=== PATIENT | female | born 1995 | race Caucasian/White ===

== ENCOUNTER 2020-05-21 19:28 | Emergency (ER) | payer OTHER, SELFPAY ==
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
[2020-05-21 19:31] VITALS: BP 114/73; PULSE 85; RESP 18; TEMP 36; O2SAT 99; BMI 35.5
[2020-05-21 19:35] VITALS: BP 114/73; PULSE 88; RESP 18; TEMP 35.8; O2SAT 100
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
== END 2020-05-21 20:47 | disposition home or self-care (01) ==
PROVIDERS: Emergency Provider Emergency Medicine
DX: S80.02XA Contusion of left knee, initial encounter (principal); M25.562 Pain in left knee; M79.605 Pain in left leg; V43.52XA Car driver injured in collision with other type car in traffic accident, initial encounter; Y93.9 Activity, unspecified; Y92.410 Unspecified street and highway as the place of occurrence of the external cause; Y99.9 Unspecified external cause status
CPT/HCPCS: 73564; 73590; 99283; 99284

== ENCOUNTER 2020-05-31 18:17 | Emergency (ER) | payer OTHER, SELFPAY ==
[2020-05-31 18:26] VITALS: BP 121/74; PULSE 95; RESP 16; TEMP 36.9; O2SAT 98; BMI 35.5
[2020-05-31 18:50] LABS: Glucose Urine UA NEG (NEG); Leukocyte Esterase Urine TRACE (NEG); Nitrite Urine NEG (NEG); Specific Gravity - Urine >= 1.030 (1.005-1.025); Urine Blood NEG (NEG); Urine Ketones 5 MG/DL (NEG); Urine Protein NEG (NEG-TRACE)
[2020-05-31 19:10] LABS: Appearance Urine CLEAR; Color Urine YELLOW
[2020-05-31 19:12] LABS: Bacteria Urine 1+ /LPF; RBC Urine 0 /HPF (0); Squamous Epithelial Cell Urine 1+ /LPF; WBC Urine 0-2 /HPF (0-4)
--- NOTE | 2020-05-31 20:13 | ED.FEMALEGU ---
HPI - Female Genitourinary General Chief complaint: Urogenital-Female Stated complaint: UTI Time Seen by Provider: 05/31/20 20:35 Source: patient Mode of arrival: ambulatory Limitations: no limitations History of Present Illness HPI Narrative: 24-year-old female presents with dysuria, vaginal itching and discharge. MD elicited complaint: dysuria, UTI , vaginal discharge, pelvic pain and genital itching Onset (ago): day(s) (3) Location of symptoms: external genitalia and perineum Severity: moderate Female Urogenital Radiation: Suprapubic Severity scale (1-10): 7 Quality of pain: burning and aching Vaginal discharge: white, yellow, thick/cheesy and vaginal odor Vaginal bleeding: none Urinary symptoms: Dysuria Relieving factors: none Sexual activity: Yes Patient : No Possible : at home test negative Related Data : 1 Para: 1 Total number of abortions (spontaneous and elective): 0 Previous Rx's Medication Instructions Recorded ibuprofen 600 mg PO Q8H PRN #20 tab 05/21/20 fluconazole [Diflucan] 150 mg PO DAILY #1 tab 05/31/20 nitrofurantoin monohyd/m-cryst 100 mg PO Q12H 7 Days #14 cap 05/31/20 [Macrobid] phenazopyridine [Pyridium] 200 mg PO TID PRN 3 Days #10 tab 05/31/20 Allergies Allergy/AdvReac Type Severity Reaction Status Date / Time No Known Allergies Allergy Verified 05/21/20 19:30 Review of Systems Review of Systems: Constitutional: No Fever, No Chills ENT/Mouth: No sore throat, No Rhinorrhea Eyes: No Eye Pain, No Redness Cardiovascular: No Chest Pain, No SOB Respiratory: No Cough, No Sputum, No Wheezing Gastrointestinal: No Nausea, No Vomiting, No Diarrhea, positive abdominal pain, Genitourinary: no irregular bleeding, positive Dysuria, No Urinary Frequency, positive pelvic pain, positive vaginal discharge positive vaginal itching Musculoskeletal: No Myalgias Skin: No rash Neuro: No Weakness, No Headache Psych: No Anxiety/Panic, No Depression Heme/Lymph: No bruising, No Lymphadenopathy Endocrine: No Polyuria, No Polydipsia Yes all other systems are reviewed and are negative PMFSH Past Medical History Medical History No known health problems : 1 Para: 1 Total number of abortions (spontaneous and elective): 0 Social History Social History Alcohol intake: never Advance Directives: No Advance Directives Information Provided: Yes Physical Exam Vital Signs: Vital Signs: Last Vital Signs Temp 98.1 F 05/31/20 21:22 Pulse 98 05/31/20 21:22 Resp 18 05/31/20 21:22 BP 105/62 05/31/20 21:22 Pulse Ox 99 05/31/20 21:22 Body Mass Index 35.5 Appearance: Alert. Oriented X3. No acute distress. Eyes: Pupils equal, round and reactive to light. ENT: Pharynx normal. Neck: Normal inspection. Neck supple. CVS: Normal heart rate and rhythm. Pulses normal. Respiratory: No respiratory distress. Breath sounds normal. Abdomen: Soft and nontender. Skin: Skin warm and dry. Normal skin color. Normal skin turgor. Extremities: No lower extremity edema. Neuro: No motor deficit. No sensory deficit. Course Course Course Narrative: 24-year-old female presents with vaginal discharge and itching with dysuria. Plan of care to test for STI, and to treat. We will perform pelvic exam. Detailed description regarding testing and exam discussed with the patient. She agrees. 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 Cervical os slit consistent with prior vaginal delivery, os is pink, normal, copious amounts of clumpy white and yellow discharge, no cervical motion tenderness, no adnexal tenderness. Findings consistent with yeast infection. Urinalysis positive for yeast infection. CBC and Chem 7 are within normal limits. Patient verbalized understanding of and agrees with plan of care discharge home. Reevaluation(s) Reevaluation #1: Nurse reported that patient did not want have the injections of penicillin and ceftriaxone to treat for sexually transmitted infections. She stated that she would rather be tested positive and come back and return for treatment. Time: 22:03 MDM - Female Genitourinary Differential Diagnosis Differential diagnosis: Likely urinary tract infection, bacterial vaginosis, trichomoniasis, cervicitis and vaginitis Medical Records Attestation: I reviewed the patient's medical records. Lab Data Attestation: I reviewed the patient's lab results. Result diagrams: 05/31/20 21:27 05/31/20 21:27 Labs: Lab Results 05/31/20 05/31/20 05/31/20 Range/Units 18:40 21:27 21:27 WBC 10.4 (4.8-10.8) X10*3/uL RBC 4.72 (4.20-5.50) X10*6/uL Hgb 13.2 (12.0-16.0) g/dl Hct 39.8 (37-47) % MCV 84.3 (80-98) fL MCH 28.0 (27.0-33.0) pg MCHC 33.2 (31.0-35.0) g/dl RDW 13.3 (11.0-16.0) % Plt Count 369 (160-400) X10*3/uL MPV 9.4 (9.4-12.3) fL Absolute Nucleated RBC 0.000 (0.0-0.012) X10*3/uL Nucleated RBC % (auto) 0.0 (0.0-0.2) /100WBC Sodium 139 (135-145) mmol/L Potassium 3.9 (3.3-5.1) mmol/l Chloride 106 (96-108) mmol/L Carbon Dioxide 24 (22-29) mmol/L Anion Gap 13 (12-20) BUN 14 (9-16) mg/dL Creatinine 0.78 (0.5-1.4) mg/dL Estim Creat Clear Calc 98.9 Estimated GFR > 60 Random Glucose 104 (60-115) mg/dL Calcium 8.9 (8.4-10.2) mg/dL Urine Color YELLOW Urine Appearance CLEAR Urine pH 6.0 (5.0-8.0) Ur Specific [place] >= 1.030 H (1.005-1.025) Urine Protein NEG (NEG-TRACE) MG/DL Urine Glucose (UA) NEG (NEG) MG/DL Urine Ketones 5 (NEG) MG/DL Urine Blood NEG (NEG) Urine Nitrite NEG (NEG) Ur Leukocyte Esterase TRACE H (NEG) Urine RBC 0 (0) /HPF Urine WBC 0-2 (0-4) /HPF Ur Squamous Epith Cells 1+ /LPF Urine Bacteria 1+ /LPF Discharge Plan Discharge Clinical Impression: Urinary tract infection, Candidiasis of genitalia in female Patient Disposition: Home, Self-Care Instructions: Sexually Transmitted Diseases (ED), Urinary Tract Infection in Women (ED), Yeast Infection (ED) Additional Instructions: you were evaluated for urinary symptoms and vaginal discharge. We treated you for syphilis, gonorrhea, and chlamydia. Please do not participate in any sexual activity until 7 days after you are symptom free. You do have a urinary tract infection. Please take Macrobid as directed. Complete the entire course of this antibiotic. We also prescribed Pyridium to help with bladder spasms. We ordered a dose of Diflucan, take this medication once the medications for your urinary tract infection are complete. Thank you for choosing this emergency department for evaluation. Please follow-up with primary care physician as needed. Return to the emergency department for any new, concerning, or worsening symptoms. Prescriptions: New nitrofurantoin monohyd/m-cryst [Macrobid] 100 mg capsule 100 mg PO Q12H 7 Days Qty: 14 RF: 0 phenazopyridine [Pyridium] 200 mg tablet 200 mg PO TID PRN (Reason: pain) 3 Days Qty: 10 RF: 0 fluconazole [Diflucan] 150 mg tablet 150 mg PO DAILY Qty: 1 RF: 0 No Action ibuprofen 600 mg tablet 600 mg PO Q8H PRN (Reason: pain) Qty: 20 RF: 0 Interventions: ED Discharge Assessment Last Done: 05/31/20 22:01 Discharge Date/Time: 05/31/20 22:04
[2020-05-31 21:22] VITALS: BP 105/62; PULSE 98; RESP 18; TEMP 36.7; O2SAT 99
[2020-05-31 21:34] LABS: Hematocrit 39.8 % (37-47); Hemoglobin 13.2 g/dl (12.0-16.0); Mean Corpuscular HGB Conc 33.2 g/dl (31.0-35.0); Mean Corpuscular Volume 84.3 fL (80-98); Mean Platelet Volume 9.4 fL (9.4-12.3); Platelet Count 369 X10*3/uL (160-400); Red Blood Count 4.72 X10*6/uL (4.20-5.50); Red Cell Distribution Width 13.3 % (11.0-16.0); White Blood Count 10.4 X10*3/uL (4.8-10.8)
[2020-05-31] MEDS: Fluconazole 150 MG TABLET PO (21:56)
[2020-05-31 22:02] LABS: Anion Gap 13 (12-20); Blood Urea Nitrogen 14 mg/dL (9-16); Calcium 8.9 mg/dL (8.4-10.2); Carbon Dioxide 24 mmol/L (22-29); Chloride 106 mmol/L (96-108); Creatinine Clr Calc Pharmacy 98.9; Estimated Glomerular Filt Rate > 60; Glucose Random 104 mg/dL (60-115); Potassium 3.9 mmol/l (3.3-5.1); Sodium 139 mmol/L (135-145)
[2020-06-01 09:20] LABS: BV Int Neg Control Negative (Negative); BV Int Pos Control Positive (Positive)
[2020-06-02 07:48] LABS: Syphilis Screen Nonreactive (Nonreactive)
[2020-06-05 04:30] LABS: CT PCR NOT DETECTED (Not Detect.); NG PCR NOT DETECTED (Not Detect.)
== END 2020-05-31 22:04 | disposition home or self-care (01) ==
PROVIDERS: Nurse Practitioner Family; Emergency Provider Internal Medicine
DX: N39.0 Urinary tract infection, site not specified (principal); B37.3 Candidiasis of vulva and vagina; R10.2 Pelvic and perineal pain
CPT/HCPCS: 36415; 80048; 81001; 81003; 85027; 86780; 87086; 87480; 87491; 87510; 87591; 87660; 96372; 99283; 99284

== ENCOUNTER 2022-08-31 18:29 | Inpatient (IN) | payer OTHER, SELFPAY ==
--- NOTE | ~2022-08-31 | CT_ITS ---
EXAMINATION: CT ABDOMEN AND PELVIS WITH CONTRAST CLINICAL INFORMATION: Right lower quadrant pain. COMPARISON: None. TECHNIQUE: Multidetector volumetric images were obtained from the superior aspect of the liver through the pubic symphysis following administration 85 mL of Omnipaque 350 intravenous contrast. Sagittal and coronal reformatted images were obtained on the technologist's workstation. Oral contrast: No This CT examination was performed using dose optimization techniques as appropriate, variously including the following: *Automated exposure control *Adjustment of mA and/or kV according to patient size (this includes techniques or standardized protocols for targeted exams where dose is matched to indication/reason for exam; i.e. extremities or head) *Use of iterative reconstruction technique DLP: 515 mGy-cm FINDINGS: LUNG BASES: The visualized lung bases are unremarkable. LIVER, GALLBLADDER, AND BILIARY TREE: The liver is enlarged measuring 18 cm craniocaudally but otherwise normal in shape and attenuation. No focal liver lesion. The gallbladder is unremarkable. No biliary ductal dilatation. PANCREAS: Unremarkable. SPLEEN: Unremarkable. ADRENAL GLANDS: Unremarkable. KIDNEYS AND URETERS: The kidneys are normal in size, shape, and attenuation. No hydronephrosis, hydroureter, or calculi seen. No perinephric stranding. BLADDER: Unremarkable. GASTROINTESTINAL TRACT: The distal ileum and terminal ileum are wall thickened and hyperemic with surrounding mesenteric fat stranding and lymphadenopathy. There is significant submucosal edema and wall thickening at the cecal base versus less likely an extraluminal low density collection, for instance measuring 5.4 x 1.8 cm on coronal image 18 series 5. The appendix appears to be within normal limits (coronal images 26 and 28, series 5). The distal colon is underdistended with equivocal wall thickening. No evidence of bowel obstruction. No free air. ABDOMINAL WALL: No significant hernia is appreciated. LYMPH NODES: Mesenteric and retroperitoneal lymphadenopathy. VASCULAR: Unremarkable. PELVIC VISCERA: The ovaries are enlarged and heterogeneous, difficult to entirely delineate due to adjacent loops of small bowel. There is a nonspecific hyperdense observation in the left ovary measuring 2.9 cm up to 68 Hounsfield units on sagittal image 39, series 6. Serpiginous structures surrounding the ovaries could represent dilated fallopian tubes or loops of the small bowel. There is small volume of free fluid in the cul-de-sac and adnexal regions. OSSEOUS STRUCTURES: Unremarkable. CT/CT abdomen pelvis w IV con IMPRESSION: Fluid filled hyperemic and wall thickened terminal ileum and distal ileum with associated mesenteric stranding and lymphadenopathy, most suggestive of acute ileitis. There is equivocal wall thickening of the descending colon versus underdistention which could indicate associated colitis. The skip distribution and involvement of the terminal ileum raises the possibility of an acute flare in the setting of Crohn's disease, GI referral is recommended. A rim-enhancing low density structure around the cecal base could represent significant contained submucosal edema/wall thickening versus a pericecal collection. Administration of oral contrast would be helpful in better delineation of the bowel and to ensure the absence of extraluminal leak. The ovaries are heterogeneous and encircle by loops of small bowel limiting accurate delineation. Uncertain if there is a hemorrhagic cyst in the left ovary and dilated fallopian tubes versus most likely just dilated small bowel loops. Recommend clinical correlation for pelvic inflammatory disease and if indicated further evaluation with pelvic ultrasound. Retroperitoneal and mesenteric lymphadenopathy, likely reactive. Nonspecific hepatomegaly. This result was discussed with Maurice Fair at 08/31/2022 10:47 PM and it was ascertained that the content of the report was understood at the time of direct communication.
--- NOTE | ~2022-08-31 | US_ITS ---
EXAMINATION: US PELVIS CLINICAL INFORMATION: Right-sided pelvic pain for 3 days. COMPARISON: CT abdomen/pelvis dated 08/31/2022 TECHNIQUE: Ultrasound of the pelvis is performed using both transabdominal and transvaginal transducers along with Doppler. Transvaginal imaging is performed due to inadequate visualization transabdominally. FINDINGS: Uterus: The uterus is anteverted and measures 6.8 x 3.8 x 4.1 cm. The double wall endometrial thickness is 0.6 mm. There is a small amount of debris-containing endometrial fluid. The uterus is smooth in contour and has normal myometrial echogenicity. No visible fibroid. Adnexa: Both ovaries are visualized. There is normal color flow to the adnexa. There is no ovarian torsion. There is no pelvic ascites or fluid collection. Right ovary measures 5.5 x 2.3 x 3.6 cm. There is a 2.6 cm benign cyst containing a single septation. There is a heterogeneously hypoechoic, likely complicated cyst measuring 2.7 x 2.2 x 1.9 cm. Left ovary measures 5.4 x 3.2 x 3.0 cm. There is a 3.5 x 2.8 x 3.0 cm heterogeneously hypoechoic structure in the left ovary. There is a solid component containing blood flow, which may represent ovarian parenchyma, however is indeterminate. US/US pelvic ovarian doppler IMPRESSION: * No evidence of ovarian torsion. * No etiology for the patient's right lower quadrant pain is identified. * Small, complicated fluid, likely blood present within the endometrial canal. * Nonspecific indeterminant solid and cystic structure in the left ovary. Recommend MRI pelvis without and with contrast for further evaluation. * Probable hemorrhagic cyst in the right ovary measuring 2.7 cm. Attention on follow-up.
--- NOTE | ~2022-08-31 | US_ITS ---
EXAMINATION: US PELVIS CLINICAL INFORMATION: Right-sided pelvic pain for 3 days. COMPARISON: CT abdomen/pelvis dated 08/31/2022 TECHNIQUE: Ultrasound of the pelvis is performed using both transabdominal and transvaginal transducers along with Doppler. Transvaginal imaging is performed due to inadequate visualization transabdominally. FINDINGS: Uterus: The uterus is anteverted and measures 6.8 x 3.8 x 4.1 cm. The double wall endometrial thickness is 0.6 mm. There is a small amount of debris-containing endometrial fluid. The uterus is smooth in contour and has normal myometrial echogenicity. No visible fibroid. Adnexa: Both ovaries are visualized. There is normal color flow to the adnexa. There is no ovarian torsion. There is no pelvic ascites or fluid collection. Right ovary measures 5.5 x 2.3 x 3.6 cm. There is a 2.6 cm benign cyst containing a single septation. There is a heterogeneously hypoechoic, likely complicated cyst measuring 2.7 x 2.2 x 1.9 cm. Left ovary measures 5.4 x 3.2 x 3.0 cm. There is a 3.5 x 2.8 x 3.0 cm heterogeneously hypoechoic structure in the left ovary. There is a solid component containing blood flow, which may represent ovarian parenchyma, however is indeterminate. US/US pelvic and transvaginal IMPRESSION: * No evidence of ovarian torsion. * No etiology for the patient's right lower quadrant pain is identified. * Small, complicated fluid, likely blood present within the endometrial canal. * Nonspecific indeterminant solid and cystic structure in the left ovary. Recommend MRI pelvis without and with contrast for further evaluation. * Probable hemorrhagic cyst in the right ovary measuring 2.7 cm. Attention on follow-up.
[2022-08-31 18:41] VITALS: BP 124/79; PULSE 104; RESP 16; TEMP 36.7; O2SAT 97; BMI 33.2
--- NOTE | 2022-08-31 18:42 | ED_ITS ---
HPI - Abdominal Pain General Chief Complaint: Abdominal Pain <Leonora Rueda CNP - Last Filed: 08/31/22 18:49> Stated Complaint: right sided lower abd pain <Leonora Rueda CNP - Last Filed: 08/31/22 18:49> Time Seen by Provider: 08/31/22 20:20 <Leonora Rueda CNP - Last Filed: 08/31/22 18:49> Source: patient <DEBI Garg - Last Filed: 09/01/22 01:30> Mode of arrival: ambulatory <DEBI Garg - Last Filed: 09/01/22 01:30> Limitations: no limitations <DEBI Garg Last Filed: 09/01/22 01:30> History of Present Illness HPI narrative: This is a 26-year-old female no significant medical history presenting to the emergency department with complaints severe right lower quadrant pain x3 days. Patient tells me initially pain started in her epigastric region has migrated to the right lower quadrant. Patient tells me initially pain was intermittent in nature however now constant. Patient reports sharp pain. Rates the pain as 6 to 7/10. Also patient complaining of diarrhea has had a few loose bowel movements starting today. Patient reports anorexia. Denies fevers, chills, nausea, vomiting, dysuria, urinary frequency, hematuria, chest pain, shortness of breath, headache, vision changes in dizziness. Patient's last menstrual period was on 08/20/2022, low suspicion for per patient. Denies any pelvic or vaginal complaints. Denies having previous pain like this in the past. <DEBI Garg - Last Filed: 09/01/22 01:30> Related Data Home Medications: Previous Rx's Medication Instructions Recorded ibuprofen 600 mg tablet 600 mg PO Q8H PRN pain #20 tabs 05/21/20 fluconazole 150 mg tablet 150 mg PO DAILY #1 tab 05/31/20 (Diflucan) nitrofurantoin 100 mg PO Q12H 7 days #14 caps 05/31/20 monohydrate/macrocrystals 100 mg capsule (Macrobid) phenazopyridine 200 mg tablet 200 mg PO TID PRN pain 3 days #10 05/31/20 (Pyridium) tabs <Leonora Rueda CNP - Last Filed: 08/31/22 18:49> Allergies/Adverse Reactions: Allergies Allergy/AdvReac Type Severity Reaction Status Date / Time No Known Allergies Allergy Verified 05/21/20 19:30 <Leonora Rueda CNP - Last Filed: 08/31/22 18:49> Review of Systems Review of Systems Constitutional : No Weight loss, No Fever, No Chills, No Fatigue, No Malaise ENT/Mouth : No sore throat, No Rhinorrhea Eyes: No Eye Pain, No Swelling, No Redness Cardiovascular : No Chest Pain, No SOB, No Dyspnea on Exertion, No Orthopnea, No Edema, No Palpitations Respiratory : No Cough, No Sputum, No Wheezing Gastrointestinal : No Nausea, No Vomiting, + Diarrhea, No Constipation, + abdominal Pain, No Hematochezia, No Melena Genitourinary : No Dysuria, No Urinary Frequency, No Hematuria, Musculoskeletal : No joint pain, No Myalgias, No Joint Swelling Skin : No Skin Lesions, No rash Neuro : No Weakness, No Numbness, No Dizziness, No Headache Psych : No Anxiety/Panic, No Depression All other systems reviewed and are negative <DEBI Garg - Last Filed: 09/01/22 01:30> Yes all other systems are reviewed and are negative <DEBI Garg - Last Filed: 09/01/22 01:30> PMFSH Past Medical History Attestation statement: The following information was validated with the patient. <DEBI Garg - Last Filed: 09/01/22 01:30> Source: old records reviewed and nursing notes reviewed <DEBI Garg - Last Filed: 09/01/22 01:30> Medical History: Medical History No known health problems <Leonora Rueda CNP - Last Filed: 08/31/22 18:49> Social History Social History: Social History Alcohol intake: never Patient Tobacco Use Status: Never used Tobacco Smoked in Last 30 Days: No Use of substances other than those prescribed or required for medical reasons: No Advance Directives: No Advance Directives Information Provided: No Nutrition Risks: No Nutritional Risk Patient : No <Leonora Rueda CNP - Last Filed: 08/31/22 18:49> Physical Exam ED Vital Signs: Vital Signs - 24 hr 08/31/22 18:41 08/31/22 20:00 08/31/22 21:46 Temperature 98.0 F 99.4 F 99.3 F Pulse Rate 104 H 99 133 H Respiratory Rate 16 16 16 Blood Pressure 124/79 111/65 114/50 L Pulse Oximetry 97 98 97 Oxygen Delivery Method Room Air Room Air Room Air 08/31/22 22:00 09/01/22 00:43 Temperature 99.3 F Pulse Rate 121 H 104 H Respiratory Rate 16 20 Blood Pressure 99/49 L 107/64 Pulse Oximetry 98 96 Oxygen Delivery Method Room Air Room Air BMI result Body Mass Index 33.2 <Leonora Rueda CNP - Last Filed: 08/31/22 18:49> Vital Signs - 24 hr 08/31/22 18:41 08/31/22 20:00 08/31/22 21:46 Temperature 98.0 F 99.4 F 99.3 F Pulse Rate 104 H 99 133 H Respiratory Rate 16 16 16 Blood Pressure 124/79 111/65 114/50 L Pulse Oximetry 97 98 97 Oxygen Delivery Method Room Air Room Air Room Air 08/31/22 22:00 09/01/22 00:43 Temperature 99.3 F Pulse Rate 121 H 104 H Respiratory Rate 16 20 Blood Pressure 99/49 L 107/64 Pulse Oximetry 98 96 Oxygen Delivery Method Room Air Room Air BMI result Body Mass Index 33.2 Vital signs stable <DEBI Garg - Last Filed: 09/01/22 01:30> Appearance: Alert.? Oriented X3.? No acute distress.? Head: Normocephalic, atraumatic, no step-offs or deformities Eyes: Pupils equal, round and reactive to light.? ENT: Pharynx normal.? Neck: Normal inspection.? Neck supple.? CVS: Normal heart rate and rhythm.? Pulses normal.? Respiratory: No respiratory distress.? Breath sounds normal.? Abdomen: Soft and tenderness to lower abdomen particularly in the right lower quadrant Bowel sounds present in all 4 quadrants. ? Skin: Skin warm and dry.? Normal skin color.? Normal skin turgor.? Extremities: No lower extremity edema.? No calf ttp. 5/5 strength to bilateral upper and lower extremities Back: No midline tenderness, no C-spine tenderness, full range of motion, no CVA tenderness bilaterally Neuro: Oriented X 3.? No motor deficit.? No sensory deficit. CN 2-12 intact <DEBI Garg - Last Filed: 09/01/22 01:30> Course Course Course Narrative: This is an RME: Additional HPI, ROS, PE not included below will be deferred to primary provider. Patient is a 26 old female who presents to the emergency department for evaluation of abdominal pain. RLQ pain made worse with movement, coughing. Onset 3 days ago. Single episode of loose stools [employer]. Denies fevers, chills, nausea, vomiting, dysuria, urinary frequency, hematuria. Denies possibility of , LMP 08/20/2022. Denies pelvic pain or abnormal vaginal discharge. Denies history of similar pain in the past. PE: no rebound tenderness, no rigidity, no guarding. soft ABD Plan: labs, urinalysis <Leonora Rueda CNP - Last Filed: 08/31/22 18:49> Reevaluation(s) Reevaluation #1: CBC with markedly elevated white blood cell count 17.1, concerns for possible appendicitis, at this time infection suspected, antibiotics, blood cultures, lactic acid and fluids ordered. Chemistry unremarkable. Lipase negative. Beta hCG negative. UA in CT scan pending. Patient is noted to be positive for COVID-19. Likely contributing to patient's diarrhea. <DEBI Garg - Last Filed: 09/01/22 01:30> Time: 21:04 <DEBI Garg - Last Filed: 09/01/22 01:30> Reevaluation #2: Dr. Canales is general surgery did come down to evaluate patient and will admit patient to his service, unclear etiology for patient's pain. <DEBI Garg - Last Filed: 09/01/22 01:30> Time: 01:12 <DEBI Garg - Last Filed: 09/01/22 01:30> Medical Decision Making Medical Decision Making [facility] Narrative: 2042 26-year-old right lower quadrant pain x3 days progressively worsening particularly today, with associated diarrhea. Physical exam with significant for tenderness to lower abdomen particularly in the right lower quadrant Bowel sounds present in all 4 quadrants. ? Concerns for possible appendicitis versus cholecystitis although appendicitis more likely be due to location of pain. Unlikely ovarian torsion, d iverticulitis, pancreatitis. Will rule out UTI history and physical exam not consistent with ectopic Plan at this time labs, urine, imaging. <DEBI Garg - Last Filed: 09/01/22 01:30> Differential Diagnosis Differential Diagnoses: The differential diagnosis associated with the presentation includes <DEBI Garg - Last Filed: 09/01/22 01:30> Concerns for possible appendicitis versus cholecystitis although appendicitis more likely be due to location of pain. Unlikely ovarian torsion, diverticulitis, pancreatitis. Will rule out UTI history and physical exam not consistent with ectopic <DEBI Garg - Last Filed: 09/01/22 01:30> Admission/Observation Consideration of admission/observation: Escalation of care including admission/observation considered <DEBI [place] - Last Filed: 09/01/22 01:30> Likely <DEBI Garg - Last Filed: 09/01/22 01:30> Lab Data [facility] Lab Attestation statement: I reviewed the patient's lab results. <DEBI Garg - Last Filed: 09/01/22 01:30> Result Diagrams: 08/31/22 18:54 08/31/22 18:54 <Leonora Rueda CNP - Last Filed: 08/31/22 18:49> Labs: Lab Results 08/31/22 08/31/22 08/31/22 Range/Units 18:54 18:54 18:54 WBC 17.1 H (4.8-10.8) X10*3/uL RBC 4.70 (4.20-5.50) X10*6/uL Hgb 13.8 (12.0-16.0) g/dl Hct 41.1 (37.0-47.0) % MCV 87.4 (80.0-98.0) fL MCH 29.4 (27.0-33.0) pg MCHC 33.6 (31.0-35.0) g/dl RDW 12.0 (11.0-16.0) % Plt Count 426 H (160-400) X10*3/uL MPV 9.1 L (9.4-12.3) fL Immature Gran % (Auto) 0.8 H (0.0-0.4) % Neut % (Auto) 67.2 (45-73) % Lymph % (Auto) 24.9 (20-40) % [place] % (Auto) 5.8 (2-11) % Eos % (Auto) 0.9 (0-4) % Baso % (Auto) 0.4 (0-2) % Lymph # (Auto) 4.3 (1.2-4.9) X10*3/uL [place] # (Auto) 1.0 (0.1-1.2) X10*3/uL Eos # (Auto) 0.2 (0.0-0.4) X10*3/uL Baso # (Auto) 0.1 (0.0-0.2) X10*3/uL Abs Immat Gran (auto) 0.13 H (0.00-0.03) X10*3/uL Absolute Neuts (auto) 11.5 H (2.0-8.3) x10*3/uL Absolute Nucleated RBC 0.000 (0.0-0.012) X10*3/uL Nucleated RBC % (auto) 0.0 (0.0-0.2) /100WBC Sodium 140 (135-145) mmol/L Potassium 4.1 (3.3-5.1) mmol/L Chloride 103 (96-108) mmol/L Carbon Dioxide 26 (22-29) mmol/L Anion Gap 15 (12-20) BUN 11 (9-16) mg/dL Creatinine 0.92 (0.5-1.4) mg/dL Estim Creat Clear Calc 79.4 Estimated GFR > 60 Random Glucose 100 (60-115) mg/dL Lactic Acid (0.5-2.0) mmol/L Calcium 9.4 (8.4-10.2) mg/dL Total Bilirubin 0.4 (0.0-1.0) mg/dL AST 16 (5-31) U/L ALT 16 (0-31) U/L Alkaline Phosphatase 116 (39-117) U/L Total Protein 8.0 (6.5-8.0) g/dL Albumin 4.3 (3.5-5.0) g/dL Lipase 13 (8-78) U/L Beta HCG, Quant < 2 mIU/mL Urine Color Urine Appearance Urine pH (5.0-9.0) Ur Specific [place] (1.005-1.025) Urine Protein (Neg-Trace) mg/dL Urine Glucose (UA) (Negative) mg/dL Urine Ketones (Negative) mg/dL Urine Blood (Negative) Urine Nitrite (Negative) Ur Leukocyte Esterase (Negative) Urine RBC (0-2) /HPF Urine WBC (0-5) /HPF Ur Squamous Epith Cells (0-2) /HPF Urine Bacteria (None Seen) Hyaline Casts (0-2) /LPF Urine Test (NEGATIVE) COVID-19 ([place]) Positive A (Negative) COVID-19 Clin Com See Note 08/31/22 08/31/22 08/31/22 Range/Units 20:59 20:59 21:44 WBC (4.8-10.8) X10*3/uL RBC (4.20-5.50) X10*6/uL Hgb (12.0-16.0) g/dl Hct (37.0-47.0) % MCV (80.0-98.0) fL MCH (27.0-33.0) pg MCHC (31.0-35.0) g/dl RDW (11.0-16.0) % Plt Count (160-400) X10*3/uL MPV (9.4-12.3) fL Immature Gran % (Auto) (0.0-0.4) % Neut % (Auto) (45-73) % Lymph % (Auto) (20-40) % [place] % (Auto) (2-11) % Eos % (Auto) (0-4) % Baso % (Auto) (0-2) % Lymph # (Auto) (1.2-4.9) X10*3/uL [place] # (Auto) (0.1-1.2) X10*3/uL Eos # (Auto) (0.0-0.4) X10*3/uL Baso # (Auto) (0.0-0.2) X10*3/uL Abs Immat Gran (auto) (0.00-0.03) X10*3/uL Absolute Neuts (auto) (2.0-8.3) x10*3/uL Absolute Nucleated RBC (0.0-0.012) X10*3/uL Nucleated RBC % (auto) (0.0-0.2) /100WBC Sodium (135-145) mmol/L Potassium (3.3-5.1) mmol/L Chloride (96-108) mmol/L Carbon Dioxide (22-29) mmol/L Anion Gap (12-20) BUN (9-16) mg/dL Creatinine (0.5-1.4) mg/dL Estim Creat Clear Calc Estimated GFR Random Glucose (60-115) mg/dL Lactic Acid 0.8 (0.5-2.0) mmol/L Calcium (8.4-10.2) mg/dL Total Bilirubin (0.0-1.0) mg/dL AST (5-31) U/L ALT (0-31) U/L Alkaline Phosphatase (39-117) U/L Total Protein (6.5-8.0) g/dL Albumin (3.5-5.0) g/dL Lipase (8-78) U/L Beta HCG, Quant mIU/mL Urine Color Yellow Urine Appearance Cloudy Urine pH 6.5 (5.0-9.0) Ur Specific [place] 1.010 (1.005-1.025) Urine Protein Negative (Neg-Trace) mg/dL Urine Glucose (UA) Negative (Negative) mg/dL Urine Ketones Negative (Negative) mg/dL Urine Blood Negative (Negative) Urine Nitrite Negative (Negative) Ur Leukocyte Esterase Large (3+) H (Negative) Urine RBC 3-5 H (0-2) /HPF Urine WBC >50 H (0-5) /HPF Ur Squamous Epith Cells 6-10 (0-2) /HPF Urine Bacteria Trace (None Seen) Hyaline Casts 3-5 (0-2) /LPF Urine Test NEGATIVE (NEGATIVE) COVID-19 ([place]) (Negative) COVID-19 Clin Com <Leonora Rueda, [employer] TECHNICIAN - Last Filed: 08/31/22 18:49> Lab Results 08/31/22 08/31/22 08/31/22 Range/Units 18:54 18:54 18:54 WBC 17.1 H (4.8-10.8) X10*3/uL RBC 4.70 (4.20-5.50) X10*6/uL Hgb 13.8 (12.0-16.0) g/dl Hct 41.1 (37.0-47.0) % MCV 87.4 (80.0-98.0) fL MCH 29.4 (27.0-33.0) pg MCHC 33.6 (31.0-35.0) g/dl RDW 12.0 (11.0-16.0) % Plt Count 426 H (160-400) X10*3/uL MPV 9.1 L (9.4-12.3) fL Immature Gran % (Auto) 0.8 H (0.0-0.4) % Neut % (Auto) 67.2 (45-73) % Lymph % (Auto) 24.9 (20-40) % [place] % (Auto) 5.8 (2-11) % Eos % (Auto) 0.9 (0-4) % Baso % (Auto) 0.4 (0-2) % Lymph # (Auto) 4.3 (1.2-4.9) X10*3/uL [place] # (Auto) 1.0 (0.1-1.2) X10*3/uL Eos # (Auto) 0.2 (0.0-0.4) X10*3/uL Baso # (Auto) 0.1 (0.0-0.2) X10*3/uL Abs Immat Gran (auto) 0.13 H (0.00-0.03) X10*3/uL Absolute Neuts (auto) 11.5 H (2.0-8.3) x10*3/uL Absolute Nucleated RBC 0.000 (0.0-0.012) X10*3/uL Nucleated RBC % (auto) 0.0 (0.0-0.2) /100WBC Sodium 140 (135-145) mmol/L Potassium 4.1 (3.3-5.1) mmol/L Chloride 103 (96-108) mmol/L Carbon Dioxide 26 (22-29) mmol/L Anion Gap 15 (12-20) BUN 11 (9-16) mg/dL Creatinine 0.92 (0.5-1.4) mg/dL Estim Creat Clear Calc 79.4 Estimated GFR > 60 Random Glucose 100 (60-115) mg/dL Lactic Acid (0.5-2.0) mmol/L Calcium 9.4 (8.4-10.2) mg/dL Total Bilirubin 0.4 (0.0-1.0) mg/dL AST 16 (5-31) U/L ALT 16 (0-31) U/L Alkaline Phosphatase 116 (39-117) U/L Total Protein 8.0 (6.5-8.0) g/dL Albumin 4.3 (3.5-5.0) g/dL Lipase 13 (8-78) U/L Beta HCG, Quant < 2 mIU/mL Urine Color Urine Appearance Urine pH (5.0-9.0) Ur Specific [place] (1.005-1.025) Urine Protein (Neg-Trace) mg/dL Urine Glucose (UA) (Negative) mg/dL Urine Ketones (Negative) mg/dL Urine Blood (Negative) Urine Nitrite (Negative) Ur Leukocyte Esterase (Negative) Urine RBC (0-2) /HPF Urine WBC (0-5) /HPF Ur Squamous Epith Cells (0-2) /HPF Urine Bacteria (None Seen) Hyaline Casts (0-2) /LPF Urine Test (NEGATIVE) COVID-19 ([place]) Positive A (Negative) COVID-19 Clin Com See Note 08/31/22 08/31/22 08/31/22 Range/Units 20:59 20:59 21:44 WBC (4.8-10.8) X10*3/uL RBC (4.20-5.50) X10*6/uL Hgb (12.0-16.0) g/dl Hct (37.0-47.0) % MCV (80.0-98.0) fL MCH (27.0-33.0) pg MCHC (31.0-35.0) g/dl RDW (11.0-16.0) % Plt Count (160-400) X10*3/uL MPV (9.4-12.3) fL Immature Gran % (Auto) (0.0-0.4) % Neut % (Auto) (45-73) % Lymph % (Auto) (20-40) % [place] % (Auto) (2-11) % Eos % (Auto) (0-4) % Baso % (Auto) (0-2) % Lymph # (Auto) (1.2-4.9) X10*3/uL [place] # (Auto) (0.1-1.2) X10*3/uL Eos # (Auto) (0.0-0.4) X10*3/uL Baso # (Auto) (0.0-0.2) X10*3/uL Abs Immat Gran (auto) (0.00-0.03) X10*3/uL Absolute Neuts (auto) (2.0-8.3) x10*3/uL Absolute Nucleated RBC (0.0-0.012) X10*3/uL Nucleated RBC % (auto) (0.0-0.2) /100WBC Sodium (135-145) mmol/L Potassium (3.3-5.1) mmol/L Chloride (96-108) mmol/L Carbon Dioxide (22-29) mmol/L Anion Gap (12-20) BUN (9-16) mg/dL Creatinine (0.5-1.4) mg/dL Estim Creat Clear Calc Estimated GFR Random Glucose (60-115) mg/dL Lactic Acid 0.8 (0.5-2.0) mmol/L Calcium (8.4-10.2) mg/dL Total Bilirubin (0.0-1.0) mg/dL AST (5-31) U/L ALT (0-31) U/L Alkaline Phosphatase (39-117) U/L Total Protein (6.5-8.0) g/dL Albumin (3.5-5.0) g/dL Lipase (8-78) U/L Beta HCG, Quant mIU/mL Urine Color Yellow Urine Appearance Cloudy Urine pH 6.5 (5.0-9.0) Ur Specific [place] 1.010 (1.005-1.025) Urine Protein Negative (Neg-Trace) mg/dL Urine Glucose (UA) Negative (Negative) mg/dL Urine Ketones Negative (Negative) mg/dL Urine Blood Negative (Negative) Urine Nitrite Negative (Negative) Ur Leukocyte Esterase Large (3+) H (Negative) Urine RBC 3-5 H (0-2) /HPF Urine WBC >50 H (0-5) /HPF Ur Squamous Epith Cells 6-10 (0-2) /HPF Urine Bacteria Trace (None Seen) Hyaline Casts 3-5 (0-2) /LPF Urine Test NEGATIVE (NEGATIVE) COVID-19 ([place]) (Negative) COVID-19 Clin Com <DEBI Garg - Last Filed: 09/01/22 01:30> Independent Interpretation I performed an independent interpretation of an: Ultrasound and CT Scan (Fluid filled hyperemic and wall thickened terminal ileum and distal ileum with associated mesenteric stranding and lymphadenopathy, most suggestive of acute ileitis. There is equivocal wall thickening of the descending colon versus underdistention which could indicate associated colitis. The skip di) <DEBI Garg - Last Filed: 09/01/22 01:30> Radiology Impression Discussion of test interpretation with radiology: I have reviewed the radiologist's reading. <DEBI Garg - Last Filed: 09/01/22 01:30> Tests considered The following testing was considered but not selected: Patient without vaginal discharge and bleeding, no pelvic pain, for this reason I did not do a pelvic exam. <DEBI Garg - Last Filed: 09/01/22 01:30> Core Measures AMI core measures followed: Yes <DEBI Garg - Last Filed: 09/01/22 01:30> Measure exclusions: not indicated <DEBI Garg - Last Filed: 09/01/22 01:30> Medications Administered Generic Name Dose Route Start Last Admin Trade Name Freq PRN Reason Stop Dose Admin Sodium Chloride 1,000 mls @ 100 mls/hr 08/31/22 23:45 09/01/22 00:16 Ns IVCONT 100 mls/hr .Q10H BARBARA Administration Piperacillin Sod/Tazobactam 50 mls @ 100 mls/hr 08/31/22 23:45 09/01/22 00:45 Sod 3.375 gm/ Sodium Chloride IV Infused Q6H BARBARA Infusion Sodium Chloride 3 ml 09/01/22 00:00 09/01/22 00:16 0.9 % Sodium Chloride Flush 3 Ml Syringe IVFLUSH Not Given QSHIFT BARBARA Discontinued Medications Generic Name Dose Route Start Last Admin Trade Name Freq PRN Reason Stop Dose Admin Ceftriaxone Sodium 1 gm/ 50 mls @ 100 mls/hr 08/31/22 21:03 08/31/22 22:10 Sodium Chloride IV 08/31/22 21:32 Infused ONCE ONE Infusion Sodium Chloride 1,000 mls @ 999 mls/hr 08/31/22 21:15 08/31/22 23:26 Ns IV 08/31/22 22:15 Infused .Q1H1M BARBARA Infusion Sodium Chloride 1,000 mls @ 999 mls/hr 08/31/22 23:15 09/01/22 01:00 Ns IV 09/01/22 00:15 Infused .Q1H1M BARBARA Infusion Iohexol 100 ml 08/31/22 21:58 08/31/22 21:58 Iohexol 350 Mg/Ml 100 Ml Infus..Btl IV 08/31/22 21:59 85 ml ONCE ONE Administration Ketorolac Tromethamine 30 mg 08/31/22 23:11 09/01/22 00:15 Ketorolac Tromethamine 15 Mg/Ml Vial IVPUSH 08/31/22 23:12 30 mg ONCE ONE Administration <Leonora Rueda CNP - Last Filed: 08/31/22 18:49> Medications Administered Generic Name Dose Route Start Last Admin Trade Name Kavita PRN Reason Stop Dose Admin Sodium Chloride 1,000 mls @ 100 mls/hr 08/31/22 23:45 09/01/22 00:16 Ns IVCONT 100 mls/hr .Q10H BARBARA Administration Piperacillin Sod/Tazobactam 50 mls @ 100 mls/hr 08/31/22 23:45 09/01/22 00:45 Sod 3.375 gm/ Sodium Chloride IV Infused Q6H BARBARA Infusion Sodium Chloride 3 ml 09/01/22 00:00 09/01/22 00:16 0.9 % Sodium Chloride Flush 3 Ml Syringe IVFLUSH Not Given QSHIFT BARBARA Discontinued Medications Generic Name Dose Route Start Last Admin Trade Name Freq PRN Reason Stop Dose Admin Ceftriaxone Sodium 1 gm/ 50 mls @ 100 mls/hr 08/31/22 21:03 08/31/22 22:10 Sodium Chloride IV 08/31/22 21:32 Infused ONCE ONE Infusion Sodium Chloride 1,000 mls @ 999 mls/hr 08/31/22 21:15 08/31/22 23:26 Ns IV 08/31/22 22:15 Infused .Q1H1M BARBARA Infusion Sodium Chloride 1,000 mls @ 999 mls/hr 08/31/22 23:15 09/01/22 01:00 Ns IV 09/01/22 00:15 Infused .Q1H1M BARBARA Infusion Iohexol 100 ml 08/31/22 21:58 08/31/22 21:58 Iohexol 350 Mg/Ml 100 Ml Infus..Btl IV 08/31/22 21:59 85 ml ONCE ONE Administration Ketorolac Tromethamine 30 mg 08/31/22 23:11 09/01/22 00:15 Ketorolac Tromethamine 15 Mg/Ml Vial IVPUSH 08/31/22 23:12 30 mg ONCE ONE Administration <DEBI Garg - Last Filed: 09/01/22 01:30> Critical Care Time Critical Care Time Critical Care Time: Yes <DEBI Garg - Last Filed: 09/01/22 01:30> Total Critical Care Time: 35 <DEBI Garg - Last Filed: 09/01/22 01:30> Attestation: I attest to this time spent taking care of the patient, obtaining history, physical, reviewing labs, imaging, speaking to my attending, speaking to specialist. <DEBI Garg - Last Filed: 09/01/22 01:30> Discharge Plan Discharge Clinical Impression: Abdominal pain, RLQ, Diarrhea <Leonora Rueda CNP - Last Filed: 08/31/22 18:49> Patient Disposition: Still a Patient <Leonora Rueda CNP - Last Filed: 08/31/22 18:49> Prescriptions: No Action ibuprofen 600 mg tablet 600 mg PO Q8H PRN (Reason: pain) Qty: 20 0RF nitrofurantoin monohyd/m-cryst [Macrobid] 100 mg capsule 100 mg PO Q12H 7 Days Qty: 14 0RF Rx Instructions: must administer with a meal/food phenazopyridine [Pyridium] 200 mg tablet 200 mg PO TID PRN (Reason: pain) 3 Days Qty: 10 0RF fluconazole [Diflucan] 150 mg tablet 150 mg PO DAILY Qty: 1 0RF <Leonora Rueda, [employer] TECHNICIAN - Last Filed: 08/31/22 18:49>
[2022-08-31 18:59] LABS: MANUAL DIFF FLAG NO
[2022-08-31 19:00] LABS: Basophils Absolute Auto 0.1 X10*3/uL (0.0-0.2); Basophils Percent Auto 0.4 % (0-2); Eosinophils Absolute Auto 0.2 X10*3/uL (0.0-0.4); Eosinophils Percent Auto 0.9 % (0-4); Hematocrit 41.1 % (37.0-47.0); Hemoglobin 13.8 g/dl (12.0-16.0); Imm Gran Abs Auto 0.13 X10*3/uL (0.00-0.03); Imm Gran Pct Auto 0.8 % (0.0-0.4); Lymphocytes Absolute Auto 4.3 X10*3/uL (1.2-4.9); Lymphocytes Percent Auto 24.9 % (20-40); Mean Corpuscular HGB Conc 33.6 g/dl (31.0-35.0); Mean Corpuscular Hemoglobin 29.4 pg (27.0-33.0); Mean Corpuscular Volume 87.4 fL (80.0-98.0); Mean Platelet Volume 9.1 fL (9.4-12.3); Monocytes Percent Auto 5.8 % (2-11); Neutrophils Absolute Auto 11.5 x10*3/uL (2.0-8.3); Neutrophils Percent Auto 67.2 % (45-73); Platelet Count 426 X10*3/uL (160-400); White Blood Count 17.1 X10*3/uL (4.8-10.8)
[2022-08-31 19:15] LABS: COVID-19 Test Positive (Negative); IDNOW Serial# 16C4AD1C
[2022-08-31 19:20] LABS: Alanine Aminotransferase 16 U/L (0-31); Albumin Level 4.3 g/dL (3.5-5.0); Alkaline Phosphatase 116 U/L (39-117); Anion Gap 15 (12-20); Aspartate Amino Transferase 16 U/L (5-31); Bilirubin Total 0.4 mg/dL (0.0-1.0); Blood Urea Nitrogen 11 mg/dL (9-16); Calcium 9.4 mg/dL (8.4-10.2); Carbon Dioxide 26 mmol/L (22-29); Chloride 103 mmol/L (96-108); Creatinine Clr Calc Pharmacy 79.4; Estimated Glomerular Filt Rate > 60; Glucose Random 100 mg/dL (60-115); Lipase 13 U/L (8-78); Potassium 4.1 mmol/L (3.3-5.1); Sodium 140 mmol/L (135-145)
[2022-08-31 20:00] VITALS: BP 111/65; PULSE 99; RESP 16; TEMP 37.4; O2SAT 98
--- NOTE | 2022-08-31 20:00 | MHC.EDTECH ---
2000 rounding done ,vitals sign pt mom at bedside .
[2022-08-31 20:46] LABS: HCG Quantitative < 2 mIU/mL
[2022-08-31 21:05] LABS: Appearance Urine Cloudy; Color Urine Yellow; Glucose Urine UA Negative (Negative); Leukocyte Esterase Urine Large (3+) (Negative); Nitrite Urine Negative (Negative); PH 6.5 (5.0-9.0); UMIC TRIGGER UACC YES; Urine Blood Negative (Negative); Urine Ketones Negative (Negative); Urine Protein Negative (Neg-Trace)
[2022-08-31 21:06] LABS: UPreg QC Valid YES; Urine Pregnancy NEGATIVE (NEGATIVE)
[2022-08-31 21:10] LABS: Bacteria Urine Trace (None Seen); UACC Culture Trigger YES; WBC Urine >50 /HPF (0-5)
--- NOTE | 2022-08-31 21:30 | MHC.EDTECH ---
pt blood culture and lactic acid drawn and sent to lab ,pt was hooked up to computer systems manager ,vitals sign taken .
[2022-08-31] MEDS: 0.9 % Sodium Chloride 1,000 ML 999 ML IV ×2 (21:39→23:26)
[2022-08-31] MEDS: cefTRIAXone sodium 1 GM in 0.9 % Sodium Chloride 50 ML IV (21:39)
[2022-08-31 21:46] VITALS: BP 114/50; PULSE 133; RESP 16; TEMP 37.4; O2SAT 97
[2022-08-31] MEDS: iohexoL 350 MG/ML 100 ML INFUS..BTL IV (21:58)
[2022-08-31 22:00] VITALS: BP 99/49; PULSE 121; RESP 16; TEMP 37.4; O2SAT 98
[2022-08-31 22:01] LABS: Lactic Acid 0.8 mmol/L (0.5-2.0)
--- NOTE | 2022-08-31 23:26 | P.HPGS_ITS ---
History of Present Illness History of Present Illness Date of Service: 09/01/22 Chief complaint: RLQ pain Narrative: Jo Ann March is a 26 year old female here in the ED for RLQ pain. She says this started 3 days ago. She says this seems to have been constant. She did not come to the ED until today as she thought that this may just have been secondary to constipation. She says the pain persisted, and she had 2 psodes of watery stools today. She denies any nausea or vomitting. She denies dysuria or vaginal discharge. She says her last sexual activity was about 2 year ago. She says her periods have been regular. She has had good oral intake and denies any fever or chills. Review of Systems Constitutional: Constitutional: Denies chills and Denies fever(s) Cardiovascular: Cardiovascular: Denies chest pain, Denies dyspnea and Denies dyspnea on exertion Respiratory: Respiratory: Denies cough, Denies dyspnea and Denies dyspnea on exertion Gastrointestinal: Gastrointestinal: Denies hematochezia, Denies change in bowel habits and Reports diarrhea Genitourinary: Genitourinary: Denies hematuria Musculoskeletal: Musculoskeletal: Denies back pain and Denies limited range of motion Neurologic: Denies focal weakness and Denies convulsions Psychiatric: Psychiatric: Denies depression and Denies mood swings PMFSH Past Medical History Medical History (Updated 09/01/22 @ 08:38 by Ton Canales MD) Lab test positive for detection of COVID-19 virus No known health problems Social History Social History Household Members: None Housing: House Do you presently have visiting nurse or other home services: No Alcohol intake: never Patient Tobacco Use Status: Never used Tobacco Smoked in Last 30 Days: No Use of substances other than those prescribed or required for medical reasons: No Advance Directives: Yes Advance Directives on File: Yes Advance Directives Date on File: 09/01/22 Nutrition Risks: No Nutritional Risk Patient : No : No Poor oral hygiene: No service: No Current occupational status: employed Meds Allergies Allergy/AdvReac Type Severity Reaction Status Date / Time No Known Allergies Allergy Verified 05/21/20 19:30 Active Medications: Current Medications Sodium Chloride (Ns) 1,000 mls @ 999 mls/hr IV .Q1H1M BARBARA Stop: 09/01/22 00:15 Home Medications Medication Instructions Recorded Confirmed Last Taken Type No Known Home Meds 09/01/22 09/01/22 Unknown History Physical Exam Vital Signs: Vital Signs: Last Vital Signs Temp 99.3 F 08/31/22 22:00 Pulse 121 H 08/31/22 22:00 Resp 16 08/31/22 22:00 BP 99/49 L 08/31/22 22:00 Pulse Ox 98 08/31/22 22:00 O2 Del Method 08/31/22 22:00 BMI result Body Mass Index 33.2 Const: General: no acute distress Orientation/consciousness: patient oriented x3 Neck: Neck: Yes no lymphadenopathy Resp: Auscultation: clear to auscultation bilaterally Cardio: Rhythm: regular rhythm GI: Palpation (GI): Soft to palpation, Tenderness to palpation present (GI) (right lower quadrant, right pelvic area), no guarding and not rigid Neuro: General: patient oriented x3 Results Results Labs: Short CBC 08/31/22 Range/Units 18:54 WBC 17.1 H (4.8-10.8) X10*3/uL Hgb 13.8 (12.0-16.0) g/dl Hct 41.1 (37.0-47.0) % Plt Count 426 H (160-400) X10*3/uL BMP 08/31/22 18:54 Sodium 140 Potassium 4.1 Chloride 103 Carbon Dioxide 26 BUN 11 Creatinine 0.92 Calcium 9.4 Liver Function 08/31/22 Range/Units 18:54 Total Bilirubin 0.4 (0.0-1.0) mg/dL AST 16 (5-31) U/L ALT 16 (0-31) U/L Alkaline Phosphatase 116 (39-117) U/L Albumin 4.3 (3.5-5.0) g/dL Urine 08/31/22 08/31/22 Range/Units 20:59 20:59 Urine Color Yellow Urine Appearance Cloudy Urine pH 6.5 (5.0-9.0) Ur Specific [place] 1.010 (1.005-1.025) Urine Protein Negative (Neg-Trace) mg/dL Urine Glucose (UA) Negative (Negative) mg/dL Urine Test NEGATIVE (NEGATIVE) Laboratory Results WBC 17.1 X10*3/uL (4.8-10.8) H 08/31/22 18:54 RBC 4.70 X10*6/uL (4.20-5.50) 08/31/22 18:54 Hgb 13.8 g/dl (12.0-16.0) 08/31/22 18:54 Hct 41.1 % (37.0-47.0) 08/31/22 18:54 MCV 87.4 fL (80.0-98.0) 08/31/22 18:54 MCH 29.4 pg (27.0-33.0) 08/31/22 18:54 MCHC 33.6 g/dl (31.0-35.0) 08/31/22 18:54 RDW 12.0 % (11.0-16.0) 08/31/22 18:54 Plt Count 426 X10*3/uL (160-400) H 08/31/22 18:54 MPV 9.1 fL (9.4-12.3) L 08/31/22 18:54 Immature Gran % (Auto) 0.8 % (0.0-0.4) H 08/31/22 18:54 Neut % (Auto) 67.2 % (45-73) 08/31/22 18:54 Lymph % (Auto) 24.9 % (20-40) 08/31/22 18:54 [place] % (Auto) 5.8 % (2-11) 08/31/22 18:54 Eos % (Auto) 0.9 % (0-4) 08/31/22 18:54 Baso % (Auto) 0.4 % (0-2) 08/31/22 18:54 Lymph # (Auto) 4.3 X10*3/uL (1.2-4.9) 08/31/22 18:54 [place] # (Auto) 1.0 X10*3/uL (0.1-1.2) 08/31/22 18:54 Eos # (Auto) 0.2 X10*3/uL (0.0-0.4) 08/31/22 18:54 Baso # (Auto) 0.1 X10*3/uL (0.0-0.2) 08/31/22 18:54 Abs Immat Gran (auto) 0.13 X10*3/uL (0.00-0.03) H 08/31/22 18:54 Absolute Neuts (auto) 11.5 x10*3/uL (2.0-8.3) H 08/31/22 18:54 Absolute Nucleated RBC 0.000 X10*3/uL (0.0-0.012) 08/31/22 18:54 Nucleated RBC % (auto) 0.0 /100WBC (0.0-0.2) 08/31/22 18:54 Sodium 140 mmol/L (135-145) 08/31/22 18:54 Potassium 4.1 mmol/L (3.3-5.1) 08/31/22 18:54 Chloride 103 mmol/L (96-108) 08/31/22 18:54 Carbon Dioxide 26 mmol/L (22-29) 08/31/22 18:54 Anion Gap 15 (12-20) 08/31/22 18:54 BUN 11 mg/dL (9-16) 08/31/22 18:54 Creatinine 0.92 mg/dL (0.5-1.4) 08/31/22 18:54 Estim Creat Clear Calc 79.4 08/31/22 18:54 Estimated GFR > 60 08/31/22 18:54 Random Glucose 100 mg/dL (60-115) 08/31/22 18:54 Lactic Acid 0.8 mmol/L (0.5-2.0) 08/31/22 21:44 Calcium 9.4 mg/dL (8.4-10.2) 08/31/22 18:54 Total Bilirubin 0.4 mg/dL (0.0-1.0) 08/31/22 18:54 AST 16 U/L (5-31) 08/31/22 18:54 ALT 16 U/L (0-31) 08/31/22 18:54 Alkaline Phosphatase 116 U/L (39-117) 08/31/22 18:54 Total Protein 8.0 g/dL (6.5-8.0) 08/31/22 18:54 Albumin 4.3 g/dL (3.5-5.0) 08/31/22 18:54 Lipase 13 U/L (8-78) 08/31/22 18:54 Beta HCG, Quant < 2 mIU/mL 08/31/22 18:54 Urine Color Yellow 08/31/22 20:59 Urine Appearance Cloudy 08/31/22 20:59 Urine pH 6.5 (5.0-9.0) 08/31/22 20:59 Ur Specific [place] 1.010 (1.005-1.025) 08/31/22 20:59 Urine Protein Negative mg/dL (Neg-Trace) 08/31/22 20:59 Urine Glucose (UA) Negative mg/dL (Negative) 08/31/22 20:59 Urine Ketones Negative mg/dL (Negative) 08/31/22 20:59 Urine Blood Negative (Negative) 08/31/22 20:59 Urine Nitrite Negative (Negative) 08/31/22 20:59 Ur Leukocyte Esterase Large (3+) (Negative) H 08/31/22 20:59 Urine RBC 3-5 /HPF (0-2) H 08/31/22 20:59 Urine WBC >50 /HPF (0-5) H 08/31/22 20:59 Ur Squamous Epith Cells 6-10 /HPF (0-2) 08/31/22 20:59 Urine Bacteria Trace (None Seen) 08/31/22 20:59 Hyaline Casts 3-5 /LPF (0-2) 08/31/22 20:59 Urine Test NEGATIVE (NEGATIVE) 08/31/22 20:59 COVID-19 ([place]) Positive (Negative) A 08/31/22 18:54 COVID-19 Clin Com See Note 08/31/22 18:54 Impressions Abdomen/Pelvis CT 08/31/22 21:59 IMPRESSION: Fluid filled hyperemic and wall thickened terminal ileum and distal ileum with associated mesenteric stranding and lymphadenopathy, most suggestive of acute ileitis. There is equivocal wall thickening of the descending colon versus underdistention which could indicate associated colitis. The skip distribution and involvement of the terminal ileum raises the possibility of an acute flare in the setting of Crohn's disease, GI referral is recommended. A rim-enhancing low density structure around the cecal base could represent significant contained submucosal edema/wall thickening versus a pericecal collection. Administration of oral contrast would be helpful in better delineation of the bowel and to ensure the absence of extraluminal leak. The ovaries are heterogeneous and encircle by loops of small bowel limiting accurate delineation. Uncertain if there is a hemorrhagic cyst in the left ovary and dilated fallopian tubes versus most likely just dilated small bowel loops. Recommend clinical correlation for pelvic inflammatory disease and if indicated further evaluation with pelvic ultrasound. Retroperitoneal and mesenteric lymphadenopathy, likely reactive. Nonspecific hepatomegaly. This result was discussed with Maurice Fair at 08/31/2022 10:47 PM and it was ascertained that the content of the report was understood at the time of direct communication. Assessment and Plan (1) Abdominal pain, RLQ: Status: Acute She presented to the ED for a 3 day history of RLQ/right pelvic pain. I have reviewed her CT and this suggests thickening of the terminal ileumand distal ileum suggestive of ileitis although a pericecal collection cannot be entirely ruled out. There is associated lympadenopathy of the mesentery and retroperitoneum. There is no drainable abscess, and the appendix does not appear inflamed. I am uncertain as to the exact etiology of these changes, with ileitis of unknown etiology a likely differential. She has leukocytosis. Her UA is unremarkable. She has an US ordered by the ED staff that is pending and this will be helpful in ruling out PID. Her exam is benign but she does have significant tenderness. I will therefore admit her for her abdominal pain. I will keep her NPO for now and start her in IV abx coverage. I will review her CT scan with the radiologist in the morning. I have explained the plan to her and her family. Time Spent With Patient Time: Total time managing care of this patient today ____ minutes. Quality Stroke Does the patient have a stroke diagnosis?: No VTE Prior VTE?: No VTE Risk Level:: Medical - low VTE Device Contraindication: N/A - Device Ordered VTE Drug Contraindication: Treatment Not Indicated Procedures Date of Service Date of Service: 08/31/22
[2022-09-01] MEDS: Ketorolac Tromethamine 15 MG/ML VIAL 30 MG IVPUSH (00:15)
[2022-09-01] MEDS: Piperacillin Sodium/Tazobactam 3.375 GM in 0.9 % Sodium Chloride 50 ML IV ×2 (00:15→06:01)
[2022-09-01] MEDS: 0.9 % Sodium Chloride 1,000 ML 100 ML IVCONT ×2 (00:16→08:34)
--- NOTE | 2022-09-01 00:20 | PC.NURSE ---
Pt A&Ox4, reports 7/10 RLQ ABD pain, worsening with movement, states it feels sharp, and having diarrhea, last episode was prior to arrival. Denies any burning/pain with urination. + bowel sounds x4. Denies N/V. IV established, blood work collected and sent to lab, meds given as documented. Pt ambulating to bedside commode independently with steady gait. Pt reports having one episode of diarrhea, and one episode described as loose stool, reports pain decrease after having BM. Pt reports having a dry mouth, ice chips given, tolerating well. Denies any pain. Resting quietly, no apparent distress. VSS.
[2022-09-01 00:43] VITALS: BP 107/64; PULSE 104; RESP 20; O2SAT 96
[2022-09-01 02:00] VITALS: BP 109/67; PULSE 117; RESP 16; TEMP 37.3; O2SAT 98
[2022-09-01 05:37] LABS: Hematocrit 37.4 % (37.0-47.0); Hemoglobin 12.5 g/dl (12.0-16.0); Mean Corpuscular HGB Conc 33.4 g/dl (31.0-35.0); Mean Corpuscular Hemoglobin 28.9 pg (27.0-33.0); Mean Corpuscular Volume 86.6 fL (80.0-98.0); Platelet Count 368 X10*3/uL (160-400); Red Blood Count 4.32 X10*6/uL (4.20-5.50); Red Cell Distribution Width 11.9 % (11.0-16.0); White Blood Count 14.4 X10*3/uL (4.8-10.8)
[2022-09-01 06:01] VITALS: BP 110/68; PULSE 95; RESP 16; O2SAT 97
[2022-09-01 06:01] LABS: Anion Gap 11 (12-20); Blood Urea Nitrogen < 3 mg/dL (9-16); Calcium 8.5 mg/dL (8.4-10.2); Carbon Dioxide 23 mmol/L (22-29); Chloride 111 mmol/L (96-108); Creatinine Clr Calc Pharmacy 94.9; Estimated Glomerular Filt Rate > 60; Glucose Random 108 mg/dL (60-115); Potassium 4.4 mmol/L (3.3-5.1); Sodium 141 mmol/L (135-145)
--- NOTE | 2022-09-01 06:09 | PC.NURSE ---
Pt appears to be sleeping, awakens with verbal stimuli. Pt reports feeling a lot better , denies any ABD pain. RN to RN report given to Daniel RN in ED overflow. Pt will be transported by interactive video technician. Pt and mom at beside aware of plan.
--- NOTE | 2022-09-01 08:26 | PHA.MEDREC ---
Pharmacy Consult ? Medication Reconciliation Pharmacy has completed the medication reconciliation.
--- NOTE | 2022-09-01 08:34 | PM.PNGS ---
Subjective Subjective Date of Service: 09/11/22 Interval history: she says pain is much improved still with loose stools overall she says is better this morning tested positive for COVID in ED Physical Exam Vital Signs: Vital Signs: Last Vital Signs Temp 99.1 F 09/01/22 02:00 Pulse 95 09/01/22 06:01 Resp 16 09/01/22 06:01 BP 110/68 09/01/22 06:01 Pulse Ox 97 09/01/22 06:01 O2 Del Method 09/01/22 06:01 BMI result Body Mass Index 33.2 Const: General: comfortable and no acute distress Resp: Effort & Inspection: normal respiratory effort Cardio: Rate: regular rate GI: Palpation (GI): Soft to palpation, not firm, Tenderness to palpation present (GI) ( mild tenderness right lower quadrant) and no guarding Objective Data Active Medications Acetaminophen (Acetaminophen 325 Mg Tablet) 650 mg PO Q6H PRN PRN Reason: Fever Sodium Chloride (Ns) 1,000 mls @ 100 mls/hr IVCONT .Q10H [facility] Last Admin: 09/01/22 00:16 Dose: 100 mls/hr Documented By: SID Piperacillin Sod/Tazobactam (Sod 3.375 gm/ Sodium Chloride) 50 mls @ 100 mls/hr IV Q6H [facility] Last Infusion: 09/01/22 06:46 Dose: 0 mls/hr Documented By: NAHID Morphine Sulfate (Morphine Sulfate 4 Mg/Ml Cartridge) 3 mg IVPUSH Q3H PRN; Protocol PRN Reason: Pain, Severe (Pain Scale 7-10) Ondansetron HCl (Ondansetron Hcl 4 Mg/2 Ml Vial) 4 mg IVPUSH Q8H PRN PRN Reason: Nausea and Vomiting Oxycodone HCl (Oxycodone Hcl Immed Release 5 Mg Tablet) 5 mg PO Q6H PRN PRN Reason: Pain, Moderate (Pain Scale 4-6 Pharmacy Consult (Consult Rx Perform Med Rec) 1 each MISCELLANE ONCE PRN PRN Reason: Consult order Sodium Chloride (0.9 % Sodium Chloride Flush 3 Ml Syringe) 3 ml IVFLUSH QSHIFT [facility] Last Admin: 09/01/22 07:57 Dose: Not Given Documented By: CRISELDA Non-Admin Reason: IV Running Labs 09/01/22 05:30 09/01/22 05:30 Labs: Laboratory Results - last 24 hr 08/31/22 08/31/22 08/31/22 18:54 18:54 18:54 MCV 87.4 MCH 29.4 MCHC 33.6 RDW 12.0 Plt Count 426 H MPV 9.1 L Immature Gran % (Auto) 0.8 H Neut % (Auto) 67.2 Lymph % (Auto) 24.9 [place] % (Auto) 5.8 Eos % (Auto) 0.9 Baso % (Auto) 0.4 Lymph # (Auto) 4.3 [place] # (Auto) 1.0 Eos # (Auto) 0.2 Baso # (Auto) 0.1 Abs Immat Gran (auto) 0.13 H Absolute Neuts (auto) 11.5 H Absolute Nucleated RBC 0.000 Nucleated RBC % (auto) 0.0 Anion Gap 15 Estim Creat Clear Calc 79.4 Estimated GFR > 60 Random Glucose 100 Lactic Acid Calcium 9.4 Total Bilirubin 0.4 AST 16 ALT 16 Alkaline Phosphatase 116 Total Protein 8.0 Albumin 4.3 Lipase 13 Beta HCG, Quant < 2 Urine Color Urine Appearance Urine pH Ur Specific [place] Urine Protein Urine Glucose (UA) Urine Ketones Urine Blood Urine Nitrite Ur Leukocyte Esterase Urine RBC Urine WBC Ur Squamous Epith Cells Urine Bacteria Hyaline Casts Urine Test COVID-19 ([place]) Positive A COVID-19 Clin Com See Note 08/31/22 08/31/22 08/31/22 20:59 20:59 21:44 MCV MCH MCHC RDW Plt Count MPV Immature Gran % (Auto) Neut % (Auto) Lymph % (Auto) [place] % (Auto) Eos % (Auto) Baso % (Auto) Lymph # (Auto) [place] # (Auto) Eos # (Auto) Baso # (Auto) Abs Immat Gran (auto) Absolute Neuts (auto) Absolute Nucleated RBC Nucleated RBC % (auto) Anion Gap Estim Creat Clear Calc Estimated GFR Random Glucose Lactic Acid 0.8 Calcium Total Bilirubin AST ALT Alkaline Phosphatase Total Protein Albumin Lipase Beta HCG, Quant Urine Color Yellow Urine Appearance Cloudy Urine pH 6.5 Ur Specific [place] 1.010 Urine Protein Negative Urine Glucose (UA) Negative Urine Ketones Negative Urine Blood Negative Urine Nitrite Negative Ur Leukocyte Esterase Large (3+) H Urine RBC 3-5 H Urine WBC >50 H Ur Squamous Epith Cells 6-10 Urine Bacteria Trace Hyaline Casts 3-5 Urine Test NEGATIVE COVID-19 ([place]) COVID-19 [facility] 09/01/22 09/01/22 05:30 05:30 MCV 86.6 MCH 28.9 MCHC 33.4 RDW 11.9 Plt Count 368 MPV 9.0 L Immature Gran % (Auto) Neut % (Auto) Lymph % (Auto) [place] % (Auto) Eos % (Auto) Baso % (Auto) Lymph # (Auto) [place] # (Auto) Eos # (Auto) Baso # (Auto) Abs Immat Gran (auto) Absolute Neuts (auto) Absolute Nucleated RBC 0.000 Nucleated RBC % (auto) 0.0 Anion Gap 11 L Estim Creat Clear Calc 94.9 Estimated GFR > 60 Random Glucose 108 Lactic Acid Calcium 8.5 D Total Bilirubin AST ALT Alkaline Phosphatase Total Protein Albumin Lipase Beta HCG, Quant Urine Color Urine Appearance Urine pH Ur Specific [place] Urine Protein Urine Glucose (UA) Urine Ketones Urine Blood Urine Nitrite Ur Leukocyte Esterase Urine RBC Urine WBC Ur Squamous Epith Cells Urine Bacteria Hyaline Casts Urine Test COVID-19 ([place]) COVID-19 Clin Com Procedures Date of Service Date of Service: 09/01/22 Progress Note: A&P Assessment and plan (1) Abdominal pain, RLQ: Status: Acute Assessment and Plan: CT scan showing suggestion of ileitis clinically much improved WBC better less pain and tenderness awaiting to review images with radiologist try clear liquid diet will consult GI (2) Lab test positive for detection of COVID-19 virus: Status: Acute Assessment and Plan: no respiratory symptoms at this time Time Spent With Patient Time: Total time managing care of this patient today ____ minutes. Quality Stroke Does the patient have a stroke diagnosis?: No VTE Prior VTE?: No VTE Risk Level:: Medical - low VTE Device Contraindication: N/A - Device Ordered VTE Drug Contraindication: Treatment Not Indicated
--- NOTE | 2022-09-01 08:45 | MHC.EDTECH ---
ambulated to bathroom , given washcloths, and cleaned line. bed change. Patient relaxing with mother in room .
--- NOTE | 2022-09-01 08:56 | MHC.CM.PN ---
Met with patient and mother, Rachna in regards to discharge planning. Patient is primary Venezuelan speaking but is able to speak and understand [place]. 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 Patient lives with her son, ambulates independently, and had no services prior to coming to the hospital. No services anticipated to be needed because patient is not homebound. Patient has no PCP. Information provided on how to obtain a PCP. Patient received 2 Covid vaccines. No boosters. Patient denies having a HCP. Information provided. HCP completed, signed and witnessed. Original given to patient. Copy placed in chart. Patient tested positive for Covid at [facility] on 08/31. Patient's mother will transport her home when medically stable. Continue to monitor for d/c needs.
--- NOTE | 2022-09-01 09:02 | PC.NURSE ---
patient alert, oriented x4. ambulating to and from the bathroom with strong steady gait. IVF running per MAR. will CTM
[2022-09-01 10:40] VITALS: BP 107/63; PULSE 87; RESP 12; O2SAT 98
[2022-09-01 11:14] VITALS: BP 103/59; PULSE 99; RESP 14; TEMP 36.7; O2SAT 97
--- NOTE | 2022-09-01 14:11 | PC.NURSE ---
Pt AxOx4, denies chest pain, headache, sob, dizziness. Pt VSS. Pt IV was taken out and Pt leave AMA around 1405 accompany by the family member. Pt refused all meds at the time which was due for her. Pt ambulate herself out of the hospital. Pt was educated about the pro and cos of leaving AMA, verbalize the understanding and sign her self off. Provider was notify about the pt leaving AMA.
--- NOTE | 2022-09-01 14:13 | PM.EVENT ---
Event Note Date of Service: 09/01/22 Event Note: called by nurse - patient wanted to sign out against medical advise Came to see patient She says that she feels well and denies abdominal pain She states that she is therefore leaving against medical advise I reviewed her imaging studies with her She says she understands CT reviewed with radiologist -- cecal wall thickening and thickening of the distal ileum No abscess collection Ultrasound shows multiple ovarian cysts Time Spent With Patient Time: Total time managing care of this patient today ____ minutes.
--- NOTE | 2022-09-13 09:42 | P.DS_ITS ---
DS: Providers Provider Date of Service: 09/01/22 Date of admission: 08/31/22 23:38 Primary care physician: None Physician DS: Diagnosis Discharge Diagnosis (1) Abdominal pain, RLQ: Status: Acute (2) Lab test positive for detection of COVID-19 virus: Status: Acute DS: Summary Hospital Course Hospital Course: 26-year-old female admitted on August 31, 2022 because of abdominal pain, mostly on the right lower quadrant and the pelvic area. She had describes some loose stools as well. She had a CAT scan showing thickening of the distal ileum as well as pericecal wall thickening. Findings were suggestive of terminal ileitis. Etiologye was uncertain. She also had leukocytosis along with significant tenderness so she was admitted and kept NPO temporarily. She also tested positive for COVID. She was therefore admitted in a COVID room with precautions. She improved considerably the morning after. Her pain level had improved and her leukocytosis had trended down. Her abdomen had remained benign. I therefore started her on clear liquids. She signed out against medical advise in the morning of 09/01/2022 as she felt that she no longer needed to be hospitalized in view of her significant improvement. I explained to her that I would recommend keeping her the hospital for at least another day in view of her thick and inflammatory changes in the ileum along with her leukocytosis. Time Spent with Patient Time attestation: Total time managing care of this patient today ____ minutes. Discharge coordination time: Less than 30 minutes Quality: Safe Use of Opioids Does Pt have an Active Cancer Diagnosis on the Problem List?: No Quality: Stroke Does the patient have a stroke diagnosis?: No Physical Exam Vital Signs: Vital Signs: Last Vital Signs Temp 98.1 F 09/01/22 11:14 Pulse 99 09/01/22 11:14 Resp 14 09/01/22 11:14 BP 103/59 L 09/01/22 11:14 Pulse Ox 97 09/01/22 11:14 O2 Del Method 09/01/22 11:14 BMI result Body Mass Index 33.2 Const: General: comfortable and no acute distress Orientation/consciousness: patient oriented x3 Neck: Neck: Yes no lymphadenopathy Resp: Auscultation: clear to auscultation bilaterally Cardio: Rhythm: regular rhythm GI: Other: Mild tenderness right lower quadrant Palpation (GI): Soft to palpation, nontender and no guarding Neuro: General: patient oriented x3 DS: Data Data Completed and Pending Labs on day of discharge: Laboratory Results WBC 14.4 X10*3/uL (4.8-10.8) H 09/01/22 05:30 RBC 4.32 X10*6/uL (4.20-5.50) 09/01/22 05:30 Hgb 12.5 g/dl (12.0-16.0) 09/01/22 05:30 Hct 37.4 % (37.0-47.0) 09/01/22 05:30 MCV 86.6 fL (80.0-98.0) 09/01/22 05:30 MCH 28.9 pg (27.0-33.0) 09/01/22 05:30 MCHC 33.4 g/dl (31.0-35.0) 09/01/22 05:30 RDW 11.9 % (11.0-16.0) 09/01/22 05:30 Plt Count 368 X10*3/uL (160-400) 09/01/22 05:30 MPV 9.0 fL (9.4-12.3) L 09/01/22 05:30 Immature Gran % (Auto) 0.8 % (0.0-0.4) H 08/31/22 18:54 Neut % (Auto) 67.2 % (45-73) 08/31/22 18:54 Lymph % (Auto) 24.9 % (20-40) 08/31/22 18:54 Charles % (Auto) 5.8 % (2-11) 08/31/22 18:54 Eos % (Auto) 0.9 % (0-4) 08/31/22 18:54 Baso % (Auto) 0.4 % (0-2) 08/31/22 18:54 Lymph # (Auto) 4.3 X10*3/uL (1.2-4.9) 08/31/22 18:54 Charles # (Auto) 1.0 X10*3/uL (0.1-1.2) 08/31/22 18:54 Eos # (Auto) 0.2 X10*3/uL (0.0-0.4) 08/31/22 18:54 Baso # (Auto) 0.1 X10*3/uL (0.0-0.2) 08/31/22 18:54 Abs Immat Gran (auto) 0.13 X10*3/uL (0.00-0.03) H 08/31/22 18:54 Absolute Neuts (auto) 11.5 x10*3/uL (2.0-8.3) H 08/31/22 18:54 Absolute Nucleated RBC 0.000 X10*3/uL (0.0-0.012) 09/01/22 05:30 Nucleated RBC % (auto) 0.0 /100WBC (0.0-0.2) 09/01/22 05:30 Sodium 141 mmol/L (135-145) 09/01/22 05:30 Potassium 4.4 mmol/L (3.3-5.1) 09/01/22 05:30 Chloride 111 mmol/L (96-108) H 09/01/22 05:30 Carbon Dioxide 23 mmol/L (22-29) 09/01/22 05:30 Anion Gap 11 (12-20) L 09/01/22 05:30 BUN < 3 mg/dL (9-16) L 09/01/22 05:30 Creatinine 0.77 mg/dL (0.5-1.4) 09/01/22 05:30 Estim Creat Clear Calc 94.9 09/01/22 05:30 Estimated GFR > 60 09/01/22 05:30 Random Glucose 108 mg/dL (60-115) 09/01/22 05:30 Lactic Acid 0.8 mmol/L (0.5-2.0) 08/31/22 21:44 Calcium 8.5 mg/dL (8.4-10.2) D 09/01/22 05:30 Total Bilirubin 0.4 mg/dL (0.0-1.0) 08/31/22 18:54 AST 16 U/L (5-31) 08/31/22 18:54 ALT 16 U/L (0-31) 08/31/22 18:54 Alkaline Phosphatase 116 U/L (39-117) 08/31/22 18:54 Total Protein 8.0 g/dL (6.5-8.0) 08/31/22 18:54 Albumin 4.3 g/dL (3.5-5.0) 08/31/22 18:54 Lipase 13 U/L (8-78) 08/31/22 18:54 Beta HCG, Quant < 2 mIU/mL 08/31/22 18:54 Urine Color Yellow 08/31/22 20:59 Urine Appearance Cloudy 08/31/22 20:59 Urine pH 6.5 (5.0-9.0) 08/31/22 20:59 Ur Specific [place] 1.010 (1.005-1.025) 08/31/22 20:59 Urine Protein Negative mg/dL (Neg-Trace) 08/31/22 20:59 Urine Glucose (UA) Negative mg/dL (Negative) 08/31/22 20:59 Urine Ketones Negative mg/dL (Negative) 08/31/22 20:59 Urine Blood Negative (Negative) 08/31/22 20:59 Urine Nitrite Negative (Negative) 08/31/22 20:59 Ur Leukocyte Esterase Large (3+) (Negative) H 08/31/22 20:59 Urine RBC 3-5 /HPF (0-2) H 08/31/22 20:59 Urine WBC >50 /HPF (0-5) H 08/31/22 20:59 Ur Squamous Epith Cells 6-10 /HPF (0-2) 08/31/22 20:59 Urine Bacteria Trace (None Seen) 08/31/22 20:59 Hyaline Casts 3-5 /LPF (0-2) 08/31/22 20:59 Urine Test NEGATIVE (NEGATIVE) 08/31/22 20:59 COVID-19 ([place]ORIA) Positive (Negative) A 08/31/22 18:54 COVID-19 Clin Com See Note 08/31/22 18:54 Impressions Abdomen/Pelvis CT 08/31/22 21:59 IMPRESSION: Fluid filled hyperemic and wall thickened terminal ileum and distal ileum with associated mesenteric stranding and lymphadenopathy, most suggestive of acute ileitis. There is equivocal wall thickening of the descending colon versus underdistention which could indicate associated colitis. The skip distribution and involvement of the terminal ileum raises the possibility of an acute flare in the setting of Crohn's disease, GI referral is recommended. A rim-enhancing low density structure around the cecal base could represent significant contained submucosal edema/wall thickening versus a pericecal collection. Administration of oral contrast would be helpful in better delineation of the bowel and to ensure the absence of extraluminal leak. The ovaries are heterogeneous and encircle by loops of small bowel limiting accurate delineation. Uncertain if there is a hemorrhagic cyst in the left ovary and dilated fallopian tubes versus most likely just dilated small bowel loops. Recommend clinical correlation for pelvic inflammatory disease and if indicated further evaluation with pelvic ultrasound. Retroperitoneal and mesenteric lymphadenopathy, likely reactive. Nonspecific hepatomegaly. This result was discussed with Maurice Fair at 08/31/2022 10:47 PM and it was ascertained that the content of the report was understood at the time of direct communication. Doppler Study Ultrasound 09/01/22 01:10 IMPRESSION: * No evidence of ovarian torsion. * No etiology for the patient's right lower quadrant pain is identified. * Small, complicated fluid, likely blood present within the endometrial canal. * Nonspecific indeterminant solid and cystic structure in the left ovary. Recommend MRI pelvis without and with contrast for further evaluation. * Probable hemorrhagic cyst in the right ovary measuring 2.7 cm. Attention on follow-up. Pelvic/Transvag US 09/01/22 01:10 IMPRESSION: * No evidence of ovarian torsion. * No etiology for the patient's right lower quadrant pain is identified. * Small, complicated fluid, likely blood present within the endometrial canal. * Nonspecific indeterminant solid and cystic structure in the left ovary. Recommend MRI pelvis without and with contrast for further evaluation. * Probable hemorrhagic cyst in the right ovary measuring 2.7 cm. Attention on follow-up. Discharge Plan Discharge Patient Disposition: Left Against Medical Advice Discharge Diagnosis: Terminal ileitis COVID positive Referrals: Physician,None [Primary Care Provider] - 1 Week Discharge Medications: No Action No Known Home Meds Discharge Orders: Discharge Order (Routine); Ordered 09/01/22 Ordered By: Ton Canales Care Plan Goals: Instructed to primary care physician Continue COVID precautions Health Concerns: Was COVID positive Changes suggestive of terminal ileitis on CT scan Plan of Treatment: Patient had been advised to stay for another day Assessment: Improving Discharge Date/Time: 09/01/22 16:14
== END 2022-09-01 16:14 | disposition left against medical advice (07) | DRG 249 ==
LOC: HO.ED 21:10 → HO.EDOVER 09-01 01:31 → HO.IMC 09-01 10:22
PROVIDERS: Nurse Practitioner Family; Physician Assistant; Admitting Provider Surgery; Emergency Provider Internal Medicine; Visit Provider Surgery
DX: K52.9 Noninfective gastroenteritis and colitis, unspecified (principal); U07.1 COVID-19; N83.201 Unspecified ovarian cyst, right side; N83.202 Unspecified ovarian cyst, left side
CPT/HCPCS: 36415; 74177; 76830; 76856; 80048; 80053; 81001; 81025; 83605; 83690; 84702; 85025; 85027; 87040; 87086; 87635; 93975; 99222; 99285; J0696; J1885; J2543; Q9967